=== PATIENT | male | born 1945 | race Caucasian/White ===

== ENCOUNTER 2017-04-02 06:20 | Day surgery (SDC) | payer MEDICARE, OTHER ==
[2017-04-01 14:31] VITALS: BMI 26.3
[2017-04-02 07:18] VITALS: RESP 18
[2017-04-02] MEDS ORDERED: Lidocaine 2% w Epi 1:100,000 Inj IJ ONE ×3 (07:52→09:45)
[2017-04-02] MEDS ORDERED: Ropivacaine 0.5% 30ML IV ONE (08:37)
[2017-04-02] MEDS ORDERED: Midazolam 2 MG/2 ML VIAL ONE (08:38)
[2017-04-02] MEDS ORDERED: Propofol 10 mg/ml Inj (20 ML) ONE (08:38)
[2017-04-02] MEDS ORDERED: Lidocaine 4% (Laryng-O-Jet) Kit MM ONE (08:39)
[2017-04-02] MEDS ORDERED: Etomidate 20 mg/10ml Inj IV ONE (08:39)
[2017-04-02] MEDS ORDERED: Lactated Ringer's 1,000 ML IV ONE ×2 (08:55→12:50)
[2017-04-02] MEDS ORDERED: Rocuronium 10 mg/ml (5 ml) ONE (09:07)
[2017-04-02] MEDS ORDERED: ePHEDrine 50 mg/ml Inj ONE (09:11)
[2017-04-02] MEDS ORDERED: HYDROmorphone 0.5 mg/0.5 ml ISec IVP PRN (11:11)
--- NOTE | 2017-04-02 11:11 | PCM.ANESB1 ---
Interscalene Block - Brachial Plexus Date of Procedure: 04/02/17 Anesthesiologist: Johnson Pre-Procedure Diagnosis: Right rotator cuff tear Post-Procedure Diagnosis: Same Procedure Performed: Interscalene Block of Brachial Plexus Right - Procedure Interscalene Block of Brachial Plexus: This procedure was explained to the patient that it is for post-operative pain management. Consent was obtained after a thorough discussion with the patient regarding the benefits and possible complications of local anesthetic block of the Brachial Plexus at the Interscalene area. The patient was brought to the Operating Room and standard monitors were applied. Time out was held with the circulating nurse to confirm the correct surgery and appropriate block. After applying Oxygen by nasal cannula and administering IV Sedation, the patient's head was gently rotated away from the __right____operative shoulder and the anterior scalene groove was carefully palpated. The ultrasound transducer was then applied to the skin in the transverse plane and the brachial plexus was visualized lateral to the carotid artery and in between the anterior and middle scalene muscles. After identification,the anterior lateral portion of the neck was prepped with Betadine solution three times and Lidocaine 1% was injected subcutaneously for topical analgesia. At this point, a # 22 gauge Stimuplex 2 inches insulated needle was inserted into the interscalene groove and directed in a caudal and midline direction. The needle was inserted lateral to the ultrasound transducer in-plane towards the brachial plexus in a [id number] direction. Needle advancement was performed carefully under direct ultrasound visualization. Nerve stimulator was used and twitched of the affected extremity including the hand brachialis muscles, biceps and the deltoid was obtained at a current of __0.4___MA. After repeated negative aspiration,__20___cc of__0.5%___,____Ropivacaine were injected. Under ultrasound guidance the local anesthetics were observed surrounding the roots of the brachial plexus. The needle was removed intact and sterile dressing was applied. The patient had stable vital signs, was conscious and in no apparent distress. The patient tolerated the interscalene block of the bracheal plexus well with stable vital signs and was prepared for subsequent surgery.
--- NOTE | 2017-04-02 11:20 | PCM.SURG1 ---
Surgeon's Initial Post Op Note - Surgeon's Notes Surgeon: Luisito Tristan MD Certified Court/Medical Interpreter: Debora Aranda PA-C Type of Anesthesia: General Endo Pre-Operative Diagnosis: Right Shoulder Rotator Cuff Tear Operative Findings: See op report Post-Operative Diagnosis: Same as pre-op dx Operation Performed: Right Shoulder Arthroscopy, Rotator Cuff Repair, Subacromial Decompression and extensive debriedement Specimen/Specimens Removed: None Estimated Blood Loss: EBL {In ML}: 25 Date of Surgery/Procedure: 04/02/17 Time of Surgery/Procedure: 10:00
[2017-04-02] MEDS ORDERED: Oxycodone/Acetaminophen 5/325 mg Tab PO PRN (11:22)
[2017-04-02] MEDS ORDERED: HYDROmorphone 0.5 mg/0.5 ml ISec IVP ONE ×2 (11:30→11:48)
[2017-04-02 15:34] VITALS: PULSE 76; O2SAT 99
[2017-04-02 19:37] VITALS: BP 122/76; TEMP 97.5
--- NOTE | 2017-04-03 08:29 | OP ---
PROCEDURE DATE: 04/02/2017 DATE OF OPERATION: 04/02/2017 ATTENDING PHYSICIAN: Luisito Tristan MD ASSISTANTS: ____ RADHA. PREOPERATIVE DIAGNOSES: 1. Right shoulder full thickness supraspinatus tear. 2. Synovitis. 3. Impingement. POST- OPERATIVE DIAGNOSES: 1. Right shoulder extensive synovitis. 2. Biceps tendon tear. 3. Full thickness supraspinatus tear. 4. Anterior and posterior labral tear. 5. Impingement. 6. Multiple subacromial adhesions. 7. Bursitis. ANESTHESIA: General and interscalene block. PROCEDURE: 1. Right shoulder rotator cuff repair. 2. Decompression with acromioplasty. 3. Lysis of adhesions without manipulation. 4. Complete synovectomy. 5. Biceps tenotomy. EBL: 10 mL. SPECIMENS: CLOSURE: Primary FLUIDS: See anesthesia sheet ANTIBIOTICS: See anesthesia sheet COMPLICATIONS: None. Indications: After failing a course of non-operative therapy, the patient elected to undergo the abo ve procedures. In the office the risks and possible complications of the shoulder arthroscopy were d iscussed in detail with the patient. These risks include, but are not limited to: continued pain, la ck of motion, infection, vascular injury, and nerve injury including axillary nerve dysfunction, refl ex sympathetic dystrophy, compartment syndrome, limb loss, and . The patient expressed an understanding of the risks and possible benefits of the procedure, and was a lso made aware of the alternatives to surgery. An informed consent was obtained, and was checked imm ediately pre-op. Procedure 1: The patient was correctly identified in the holding area and the right shoulder was mar ked with the surgeon's initials. The patient was transported to the operating room and placed in the supine position and general anesthesia was obtained. Regional interscalene block, exam under anesthes ia was obtained. A preoperative orthopedic examination revealed a passive range of motion of forward flexion to 160 degrees of forward elevation, 50 degrees of external rotation, and 120 degrees of abd uction. Stability examination revealed: No instability was noted. Procedure 2: The patient was then placed in a beach chair position utilizing the beach chair positio paulie device. The patient's head was stabilized and the indicated upper extremity was prepped and yulia ped in the standard surgical fashion. The anatomic structures were outlined with a skin marker, and 1% lidocaine with epinephrine was injected into the posterior, anterior, and lateral portal areas. A #21-gauge spinal needle was placed in the glenohumeral joint from the posterior portal and 10 mL of sterile saline was injected into the glenohumeral joint. Return of fluid indicated correct needle pl acement into the joint. The needle was then withdrawn and a #11 blade was used to make a 1cm incisio n at the posterior portal site. Next, the arthroscopic blunt trocar was inserted into the glenohumer al joint. A #21-gauge spinal needle was placed through the anterior rotator interval, and the anteri or portal was made with a #11 blade after the spinal needle was withdrawn. A 7-mm cannula was then i nserted after the skin incision was made and the arthroscopic probe was then used to examine the inte rnal structures of the glenohumeral joint. With the shoulder abducted and externally rotated position , the articular surface of the rotator cuff was visualized. The arthroscope and probe were then swi tched from posterior to anterior. The posterior labrum, posterior capsule, and biceps anchor reflecti on was then inspected with the arthroscope in the anterior portal position. Examination of the glenohumeral joint revealed: 1. Extensive synovitis. 2. Extensive biceps tendon tearing. 3. Full thickness and retracted supraspinatus tear. 4. Anterior and posterior superior labral tear. Using the probe the labrum was circumferentially assessed for tear. Tears were note at anterior and p osterior superior labrum. Using the 4.0 motorized shaver and radiofrequency probe, the torn edges of the labrum were debrided until stable rim, preventing any further propagation. ____ Upon careful arthroscopic evaluation of biceps tendon and its anchor site at the labrum, it was noted to be highly frayed and tears not amenable to repair. Due to tissue quality and patient's age, decis ion was made to proceed with Biceps tenotomy. Using arthroscopic scissors, biceps tenotomy was succes sfully performed. The loose edges of labrum were debrided using radiofrequency probe and arthroscopic shaver. Examination of the subacromial space revealed: 1. Retracted full thickness supraspinatus tear. 2. Multiple subacromial adhesions. 3. Extensive bursitis. 4. Impingement. Visualization of the subacromial space was difficult due to excessive bursitis. A bursectomy was perf ormed using a combination of radiofrequency device as well as a 4.0-mm full radius motorized shaver. The soft tissue on the undersurface of the acromion was debrided utilizing the 4.0 mm full radius sha kimberlee and the radiofrequency device was used for hemostasis. At this point, the coracoacromial ligament was released, with the radiofrequency device, and the acromial branch of the thoracoacromial artery was coagulated with the same instrument. Sub-acromial decompression was performed with a 4.0 mm enmanuel pratik rand using both the medial portal and the "cutting-block" precision acromioplasty technique from the posterior portal. The undersurface of the acromion was resected to a flat, smooth surface to all ow unrestricted excursion of the rotator cuff. The soft tissue on the undersurface of the acromion was debrided utilizing the 4.0 mm full radius sha kimberlee and the radiofrequency device was used for hemostasis. At this point, the coracoacromial ligament was released, with the radiofrequency device, and the acromial branch of the thoracoacromial artery was coagulated with the same instrument. Sub-acromial decompression was performed with a 4.0 mm enmanuel pratik rand using both the medial portal and the "cutting-block" precision acromioplasty technique from the posterior portal. The undersurface of the acromion was resected to a flat, smooth surface to all ow unrestricted excursion of the rotator cuff. There were multiples adhesions noted within the sub-acromial space. Adhesions were found within the a nterior, posterior and lateral gutter. These adhesions were scared into to anterior and posterior por tion of rotator cuff limiting range of motion. Using the 4.0 mm motorized shaver and radiofrequency p robe, adhesions were debrided and removed. All the bleeding surfaces were coagulated. Afterwards, the shoulder was taken through range of motion and there was a notable improvement in range of motion an d unrestrictive excursion of rotator cuff muscle and tendons. After adequate subacromial decompression, attention was then turned to the rotator cuff tear, which w as easily visualized after adequate bursectomy had been performed. An auxiliary lateral portal was p laced 2 cm posterior to the original lateral portal, after a correct "-man's angle" was determine d using a trans-deltoid 21 gauge spinal needle. Arthroscopic soft tissue releases were performed usi ng an elevator at the coracohumeral ligament insertion and superior glenoid to free up the rotator cu ff to provide adequate excursion to support a repair to the greater tuberosity. Next, the greater tu berosity was gently debrided with a combination of the 4.0 mm straight shaver and radiofrequency pricilla ce, and the bone was denuded to a bleeding surface using the 4.0 mm rand. The lateral margin of the rotator cuff tear was debrided to a smooth and stable tendon surface using the 4.0 mm shaver. Two 4. 5 mm Arthrex corkscrew suture anchors were placed with the proper " man's angle" into the greater tuberosity, and a mattress suture from each anchor was passed through supraspinatus 10mm medial to t he torn edge. These anchors formed the medial row of the double row repair. The arm was abducted to 70 degrees, and the leading edge of the cuff was drawn to its proper insertion on the greater tubero sity. The #2 FiberWire mattress sutures were tied with standard arthroscopic knot tying techniques - Cristian knots and half hitches using a knot pusher. The remaining sutures were secured to the tuber osity with two 4.5 mm Push-lock absorbable anchors, which were placed with standard technique into th e lateral aspect of the greater tuberosity approximately 1cm lateral to the medial row anchors. One suture strand from each knot was crossed to the diagonal Push-lock anchor along with the suture stran d from the corresponding anchor directly medial. This linking of the medial and lateral row formed a "suture bridge" rotator cuff repair. The ends of the remaining sutures were then cut. The shoulder was put through a passive ROM, and the rotator cuff repair was noted to be stable through a ROM of 1 30/50. No prominence of the suture knots or of rotator cuff tissue was noted to impinge during abduc tion and internal rotation. The subacromial space was then irrigated with sterile saline, and closure was instituted with sutures . A dressing was placed consisting of Xeroform, 4 x 4's, ABD pads, and tape. The patient was placed in a sling with an ABD pad in the axilla. The patient was then placed in a supine position and extubated without incident. The patient was tra nsferred to the recovery room in stable condition, having tolerated the procedure well. Post-operatively, the patient will be maintained in a abduction sling. Also, provided with my rehab p carissa, defining the restriction and sling use for 6-8 weeks. Follow up in ____ days. During this procedure, I was assisted by ____ who assisted in positioning the patient on the operatin g room table as well as transferring the patient from the operating room table to the recovery room s tretcher. In addition, ____ assisted me during the actual operative procedure by positioning the pat ient's extremity to allow for easier arthroscopic access to all areas of the joint. The presence of ____ as my operative media assistant was medically necessary to ensure the utmost safety of the patient in the pre, intra-, and post-operative periods. Luisito Tristan MD cc: [id number] TT: 04/02/2017 12:56:41 surya
== END 2017-04-02 19:40 | disposition home or self-care (01) ==
LOC: H.OPSURG 06:20
PROVIDERS: ATTEND Orthopaedic Surgery
DX: M65.811 Other synovitis and tenosynovitis, right shoulder (principal); E11.9 Type 2 diabetes mellitus without complications; E78.5 Hyperlipidemia, unspecified; I10 Essential (primary) hypertension; Z85.46 Personal history of malignant neoplasm of prostate; Z92.3 Personal history of irradiation; M25.811 Other specified joint disorders, right shoulder
CPT/HCPCS: 29820; 29825; 29827; 82948; C1713; J0690; J1170; J2250; J2405; J2704; J3010; J7030; J7120